=== PATIENT | female | born 1955 | race Caucasian/White ===

== ENCOUNTER → 2024-03-20 11:06 | Outpatient (REF) | payer OTHER, SELFPAY | LOC: WDC 11:06 | PROVIDERS: ATTENDING PHYSICIAN Internal Medicine | DX: Z12.31 Encounter for screening mammogram for malignant neoplasm of breast (principal) | CPT/HCPCS: 77063; 77067 ==

== ENCOUNTER 2024-12-02 14:43 | Inpatient (IN) | payer OTHER, SELFPAY ==
[2024-12-02 09:56] VITALS: BP 152/91
[2024-12-02 10:24] LABS: Hematocrit 43.3 % (37.0-47.0); Hemoglobin 15.0 g/dL (12.0-16.0); Mean Corp Hgb Conc. 34.6 g/dL (33.0-37.0); Mean Corpuscular Volume 89.6 fL (81.0-99.0); Nucleated Red Blood Cells % 0 %; Platelet Count 264 10^3/uL (130-400); Red Cell Dist. Width 12.5 % (11.5-14.5)
[2024-12-02 10:50] LABS: Troponin I < 0.012 ng/ml
[2024-12-02 10:57] LABS: Albumin 4.6 g/dl (3.5-5.0); Alkaline Phosphatase 166 U/L (38-126); Blood Urea Nitrogen 16 mg/dl (7-17); Calcium 10.3 mg/dl (8.4-10.2); Carbon Dioxide 29 mmol/L (22-30); Chloride 103 mmol/L (98-107); Glucose 123 mg/dl (70-99); Potassium 3.8 mmol/L (3.5-5.1); Sodium 138 mmol/L (135-145); Total Protein 7.7 g/dl (6.3-8.2); eGFR > 60.00
[2024-12-02 11:18] LABS: ALT (SGPT) 865 U/L (0-35); AST (SGOT) 1247 U/L (14-36)
[2024-12-02 11:47] LABS: Lipase > 4000 U/L (23-300)
--- NOTE | 2024-12-02 13:22 | ED.GENMED ---
History of Present Illness
General
Chief Complaint: Abdominal Pain
Source: patient
Exam Limitations: none
Time Seen by Provider: 12/02/24 11:38
History of Present Illness
History of Present Illness:
69-year-old female presents complaining of intermittent abdominal pain over the past couple weeks. Today's episode seems more severe. She vomited this morning. No associated fever. She has a history of hypertension. No other complaints at this
time.
Phy Exam
Physical Exam
Physical Exam:
General: Well-appearing but uncomfortable female no acute respiratory distress
HEENT normocephalic atraumatic
Heart: Regular rate and rhythm
Lungs: Clear abdomen is soft tender in the epigastric region and right upper quadrants
Extremities: No cyanosis
Skin no jaundice
Course
Orders/Labs/Results
Orders:
Orders
12/02/24 10:01
ECG [Electrocardiogram (*1)] Urgent
Reason for Study: Abdominal Pain
Other Reason for Exam: Epigastric pain
EKG- Treatment ONCE
12/02/24 10:09
Complete Blood Count/With Diff Urgent
Comprehensive Metabolic Panel Urgent
Lipase Urgent
Troponin I Urgent
12/02/24 11:48
US Abdomen Complete/Upper Urgent
Comment:
Reason For Exam: epigastric pain
Abnormal Lab Results
12/02/24
10:09
WBC 12.1 H 10^3/uL
(4.8-10.8)
MCH 31.1 H pg
(27.0-31.0)
Absolute Neuts (auto) 10.6 H 10^3/uL
(1.4-6.5)
Absolute Lymphs (auto) 0.9 L 10^3/uL
(1.2-3.4)
Neutrophils % 87.1 H %
(42.2-75.2)
Lymphocytes % 7.1 L %
(20.5-51.1)
Glucose 123 H mg/dl
(70-99)
Calcium 10.3 H mg/dl
(8.4-10.2)
Total Bilirubin 3.2 H mg/dl
(0.2-1.3)
AST 1247 H* U/L
(14-36)
ALT 865 H* U/L
(0-35)
Alkaline Phosphatase 166 H U/L
(38-126)
Lipase > 4000 H* U/L
(23-300)
12/02/24 10:09
12/02/24 10:09
Vital Signs
Initial and Last Documented VS:
Initial Vital Signs
Temp Pulse Resp BP Pulse Ox
98.4 F 89 20 152/91 96
12/02/24 09:56 12/02/24 09:56 12/02/24 09:56 12/02/24 09:56 12/02/24 09:56
Last Documented Vital Signs
Temp Pulse Resp BP Pulse Ox
98.4 F 89 20 152/91 96
12/02/24 09:56 12/02/24 09:56 12/02/24 09:56 12/02/24 09:56 12/02/24 09:56
MDM/Problems Addressed
Differential Diagnosis Includes:
Abdominal pain intermittent. Consider biliary colic versus pancreatitis versus constipation
Will check labs and ultrasound of abdomen
*Pulse Oximetry
SaO2: 96
Oxygen Mode of Delivery: Room air
Patient hypoxic: no
*Critical Care Note
Total Time (30-74mins, 75-104mins- exclusive of procedures): Not Applicable
Update Note
Update Note:
Labs demonstrate elevated LFTs and lipase greater than 4000. Ultrasound shows gallstones without cholecystitis. Suspect possible gallstone pancreatitis. Notified hospitalist and GI team will admit to hospital for further workup. Patient
declining any pain medication at this time
ED Attending Note
-
Portions of this chart may have been created with voice recognition software.� Occasional wrong word or��sound alike� substitutions may have occurred due to the inherent limitations of voice recognition software.
Discharge Plan
Departure
Patient Disposition: Admit
Date of Disposition: 12/02/24
Time of Disposition: 13:24
Presentation/result/management discussed w/ accepting MD/DO: Hospitalist
Discharge Problem:
Acute pancreatitis
Prescriptions:
No Action
amlodipine [Norvasc] 2.5 mg Tablet
2.5 mg PO DAILY
Theragen Tablet
1 tab PO DAILY
valsartan-hydrochlorothiazide 320-12.5 mg Tablet
1 tab PO DAILY
cranberry 450 mg Tablet
900 mg PO DAILY
Referrals:
Layne Barrett DO [Family Provider, Family Practice]
Discharge Date and Time
Print Language: [place]
--- NOTE | 2024-12-02 13:38 | HPS.HSE ---
Family Physician
-
Family Physician: Layne Barrett DO
Chief Complaint
-
abdominal pain
History of Present Illness
69-year-old female past medical history of hypertension presenting with epigastric abdominal pain since yesterday night. Patient has had 4 episodes this month of epigastric pain that usually resolves with the next morning. Pain is severe this
time. Pain does not radiate to the back or shoulder. She did have vomiting of bilious material. Was a little bit constipated but denies any diarrhea. No fevers or chills.
No prior history of known gallstones.
She does not drink any alcohol. Denies smoking or drugs.
Medical History
Past Medical History
Past Medical History: Reports Other (hypertension )
Past Surgical History: Reports None
Social History
Tobacco: Non-smoker
Alcohol: None
Drug: None
Family History
Family History: Not pertinent
Allergies / Home Medications
Allergies reflects when Allergies were last updated in [facility].
Home Medications with original date entered in [facility]
Allergy/Medication List:
Allergies
Allergy/AdvReac Type Severity Reaction Status Date / Time
NKA - No Known Allergies Allergy Unknown Uncoded 12/02/24 11:43
Home Medications
amlodipine 2.5 mg tablet (Norvasc) 2.5 mg PO DAILY 12/02/24
cranberry fruit 450 mg tablet (cranberry) 900 mg PO DAILY 12/02/24
therapeutic multivitamin 1 tab PO DAILY 12/02/24
valsartan 320 mg-hydrochlorothiazide 12.5 mg tablet 1 tab PO DAILY 12/02/24
Review of Systems
-
Constitutional: Reports No Symptoms
EENT: Reports No Symptoms
Respiratory: Reports No Symptoms
Cardiac: Reports No Symptoms
Abdomen/GI: Reports See HPI
: Reports No Symptoms
Musculoskeletal: Reports No Symptoms
Skin: Reports No Symptoms
Neurological: Reports No Symptoms
Endocrine: Reports No Symptoms
Hematologic/Lymphatic: Reports No Symptoms
Psych: Reports No Symptoms
Physical Exam
Vital Signs
Vital Signs
Temp Pulse Resp BP Pulse Ox
98.4 F 89 20 152/91 96
12/02/24 09:56 12/02/24 09:56 12/02/24 09:56 12/02/24 09:56 12/02/24 13:24
Physical Exam
General: Well Developed, Well Nourished and No Apparent Distress
HEENT: NormoCephalic, Moist mucous membranes and Atraumatic
Respiratory: Clear
Cardiac: S1/S2 and Regular Rhythm; No Murmur or Rub
GI: Soft, Non Distended, Normal Bowel Sounds and Tender (epigastric tenderness); No Organomegaly
Rectal: Deferred by Provider
Musculoskeletal: No Clubbing, No Cyanosis and No Edema
Skin: No Rash
Neuro: Nonfocal/grossly intact
Laboratory Results
-
12/02/24 10:09
12/02/24 10:09
Laboratory Results
Total Bilirubin 3.2 mg/dl (0.2-1.3) H 12/02/24 10:09
AST 1247 U/L (14-36) H* 12/02/24 10:09
ALT 865 U/L (0-35) H* 12/02/24 10:09
Alkaline Phosphatase 166 U/L (38-126) H 12/02/24 10:09
Troponin I < 0.012 ng/ml 12/02/24 10:09
Lipase > 4000 U/L (23-300) H* 12/02/24 10:09
Data Reviewed
-
Lab Data: Labs Reviewed by me
Old Records: Reviewed
Impression/Plan
-
IMPRESSION:
PLAN:
# Likely acute gallstone pancreatitis
-Leukocytosis
- Abdominal ultrasound shows cholelithiasis, gallbladder contained multiple stones stones, no evidence of cholecystitis, extrahepatic common bile duct 5 mm
- Severe transaminitis with total bilirubin 3.2
- Lipase greater than 4000
- N.p.o.
- IV fluids with LR at 150 cc/h
- Check MRI/MRCP
-Zofran, Toradol, Dilaudid
- GI consulted
- Will need eventual surgical evaluation for cholecystectomy
Essential hypertension
- Continue valsartan/hydrochlorothiazide, amlodipine,
Full code
DVT prophylaxis-heparin
N.p.o.
[2024-12-02] MEDS: NSS 1000 IV (13:40)
[2024-12-02 13:44] VITALS: BMI 31.9
[2024-12-02 14:07] VITALS: BP 163/82
[2024-12-02 15:36] VITALS: BP 188/91; BMI 31.7
--- NOTE | 2024-12-02 16:07 | CON.GI ---
Consultation
-
Date/Time Consultation Requested: 12/02/2024
Date/Time Consultation Performed: 12/02/2024
Requesting Provider: Hospitalist
Performing Provider: Adelso JOHNSON
Reason for Consultation: Pancreatitis
Medical History
Chief Complaint / HPI
Chief Complaint: Abdominal pain
History of Present Illness:
69-year-old female with past medical history of hypertension admitted with abdominal pain/nausea/vomiting since last night. Severe sharp epigastric abdominal pain. No pain radiation associated with bilious vomiting. Patient claims she has been
getting intermittent abdominal pain with nausea 3-4 episodes over the last 1 month. Resolved spontaneously during that time. Denies any alcohol abuse. No prior history of pancreatitis.
Past Medical History
Past Medical History: HTN
Past Surgical History: None
Social History
Tobacco: Non-Smoker
Alcohol: None
Allergies / Home Medications
Allergy/AdvReac Type Severity Reaction Status Date / Time
NKA - No Known Allergies Allergy Unknown Uncoded 12/02/24 11:43
�Medication �Instructions �Recorded
amlodipine 2.5 mg tablet (Norvasc) 2.5 mg PO DAILY 12/02/24
cranberry fruit 450 mg tablet 900 mg PO DAILY 12/02/24
(cranberry)
therapeutic multivitamin 1 tab PO DAILY 12/02/24
valsartan 320 1 tab PO DAILY 12/02/24
mg-hydrochlorothiazide 12.5 mg
tablet
Review of Systems
-
All other systems: A 12 pt ROS was Negative except as stated above in HPI
Vital Signs
Temp Pulse Resp BP Pulse Ox
99.6 F 89 16 188/91 97
12/02/24 15:36 12/02/24 15:36 12/02/24 15:36 12/02/24 15:36 12/02/24 15:36
Physical Exam
Exam
General: Well Developed, Well Nourished and Comfortable
Respiratory: Clear
Cardiac: S1/S2
GI: Soft, Non Tender, Non Distended and Normal Bowel Sounds
Neuro: AO x 3
Results
WBC 12.1 10^3/uL (4.8-10.8) H 12/02/24 10:09
Hgb 15.0 g/dL (12.0-16.0) 12/02/24 10:09
Hct 43.3 % (37.0-47.0) 12/02/24 10:09
MCV 89.6 fL (81.0-99.0) 12/02/24 10:09
Plt Count 264 10^3/uL (130-400) 12/02/24 10:09
Absolute Neuts (auto) 10.6 10^3/uL (1.4-6.5) H 12/02/24 10:09
Sodium 138 mmol/L (135-145) 12/02/24 10:09
Potassium 3.8 mmol/L (3.5-5.1) 12/02/24 10:09
Chloride 103 mmol/L (98-107) 12/02/24 10:09
Carbon Dioxide 29 mmol/L (22-30) 12/02/24 10:09
BUN 16 mg/dl (7-17) 12/02/24 10:09
Creatinine 0.6 mg/dL (0.6-1.0) 12/02/24 10:09
Calcium 10.3 mg/dl (8.4-10.2) H 12/02/24 10:09
Total Bilirubin 3.2 mg/dl (0.2-1.3) H 12/02/24 10:09
AST 1247 U/L (14-36) H* 12/02/24 10:09
ALT 865 U/L (0-35) H* 12/02/24 10:09
Alkaline Phosphatase 166 U/L (38-126) H 12/02/24 10:09
Lipase > 4000 U/L (23-300) H* 12/02/24 10:09
Diagnostic Image Results:
US abd 12/02/2024
IMPRESSION:
Cholelithiasis; gallbladder contains multiple small stones. No secondary findings for acute cholecystitis.
Prior GI Procedures:
EGD: 11/30/2018 Dr. Dena Willams regular. Small hiatal hernia. Chronic gastritis. Normal duodenum
Colonoscopy: 11/2018 Dr. Lopes
Assessment / Plan
-
69-year-old female with past medical history of hypertension admitted with severe epigastric abdominal pain associated with bilious vomiting since last night. Intermittent abdominal pain with nausess 3-4 episodes over the last 1 month. In ED
labs�WBC 12.1. Hb 15/platelets 264
AST 1247/ALT 865/alkaline phosphatase 166/total bilirubin 3.2/lipase over 4000. Ultrasound abdomen showing cholelithiasis. Common bile duct 5 mm
-- Acute pancreatitis-based on symptoms/elevated lipase.Etiology likely gallstone pancreatitis.
-- Elevated liver test
plan
N.p.o.
IV fluid- LR at 150 cc/hr
Pain management as per medical team
Continue to trend LFT
Will check triglyceride
MRI/MRCP to rule out choledocholithiasis. If choledocholithiasis + then will schedule for ERCP
Surgical eval for cholecystectomy
Total Time Spent with Patient (in minutes): 55
-
-
Thank you for consultation and allowing me to participate in the patient's care. Please call the applications sales representative GI physician during the after hours with any questions or concerns.
[2024-12-02] MEDS: LR 1000 IV ×2 (16:50→23:21)
[2024-12-02] MEDS: HEPARIN 5000 UNITS SC (19:39)
[2024-12-02 19:43] VITALS: BP 162/75
[2024-12-02] MEDS: DIOVAN 320 MG PO (19:47)
[2024-12-02] MEDS: NORVASC 2.5 MG PO (19:49)
[2024-12-02] MEDS: ORETIC 12.5 MG PO (19:50)
[2024-12-02 23:30] VITALS: BP 145/84
[2024-12-03] MEDS: LR 1000 IV ×3 (05:26→22:58)
[2024-12-03 06:44] LABS: Hematocrit 41.0 % (37.0-47.0); Hemoglobin 14.0 g/dL (12.0-16.0); Mean Corp Hgb Conc. 34.1 g/dL (33.0-37.0); Mean Corpuscular Volume 89.3 fL (81.0-99.0); Nucleated Red Blood Cells % 0 %; Platelet Count 223 10^3/uL (130-400); Red Cell Dist. Width 12.8 % (11.5-14.5)
[2024-12-03 07:00] VITALS: BP 133/73
[2024-12-03 07:20] LABS: ALT (SGPT) 657 U/L (0-35); AST (SGOT) 555 U/L (14-36); Albumin 3.7 g/dl (3.5-5.0); Alkaline Phosphatase 199 U/L (38-126); Blood Urea Nitrogen 7 mg/dl (7-17); Calcium 9.0 mg/dl (8.4-10.2); Carbon Dioxide 26 mmol/L (22-30); Chloride 107 mmol/L (98-107); Estimated Creatinine Clearance 89 ml/min; Glucose 85 mg/dl (70-99); Potassium 3.4 mmol/L (3.5-5.1); Sodium 138 mmol/L (135-145); Total Protein 6.4 g/dl (6.3-8.2); Triglycerides 71 mg/dl (10-149); eGFR > 60.00
[2024-12-03] MEDS: NORVASC 2.5 MG PO (08:23)
[2024-12-03] MEDS: KCL 20 MEQ PO (08:23)
[2024-12-03] MEDS: DIOVAN 320 MG PO (08:23)
[2024-12-03] MEDS: ORETIC 12.5 MG PO (08:24)
[2024-12-03] MEDS: THERAGRAN 1 TABLET PO (08:24)
[2024-12-03 08:44] LABS: Hepatitis C Antibody Negative (Negative)
--- NOTE | 2024-12-03 09:05 | W.PN.GI.CBS2 ---
Today's Communication / Plan
-
await MRI/MRCP
Assessment / Plan
-
69-year-old female with past medical history of hypertension admitted with severe epigastric abdominal pain associated with bilious vomiting since last night. Intermittent abdominal pain with nausess 3-4 episodes over the last 1 month. In ED
labs�WBC 12.1. Hb 15/platelets 264
AST 1247/ALT 865/alkaline phosphatase 166/total bilirubin 3.2/lipase over 4000. Ultrasound abdomen showing cholelithiasis. Common bile duct 5 mm
-- Acute pancreatitis-based on symptoms/elevated lipase.Etiology likely gallstone pancreatitis.
-- Elevated liver test
plan
await MRI/MRCP if impacted stone will need ERCP
N.p.o.
IV fluid
Continue to trend LFT (bilirubin has gone up)
Surgical eval for cholecystectomy
Subjective
Subjective
Date of Service: December 03, 2024
Pt feels better, no vomiting
Objective
Data Reviewed
Laboratory Data:
Laboratory Results
12/03/24 05:54
12/03/24 05:54
Laboratory Results
Total Bilirubin 7.4 mg/dl (0.2-1.3) H D 12/03/24 05:54
AST 555 U/L (14-36) H* 12/03/24 05:54
ALT 657 U/L (0-35) H* 12/03/24 05:54
Alkaline Phosphatase 199 U/L (38-126) H 12/03/24 05:54
Lipase > 4000 U/L (23-300) H* 12/02/24 10:09
Vital Signs and I&O:
Vital Signs
Temp Pulse Resp BP Pulse Ox
98.2 F 76 14 133/73 94
12/03/24 07:00 12/03/24 07:00 12/03/24 07:00 12/03/24 07:00 12/03/24 07:00
I&O
12/02/24 12/03/24 12/04/24
06:59 06:59 06:59
Intake Total 540 / 540
Balance 540 / 540
Physical Exam
Physical Exam
Cardiology: S1 and S2
GI: Soft and Non Distended
Neuro: Non Focal
[2024-12-03 09:25] LABS: Lipase 2006 U/L (23-300)
--- NOTE | 2024-12-03 11:19 | CM ---
CM reviewed chart, patient seen bedside, initial assessment completed. Patient resides independently in a two level home, bedroom on second floor, 10 steps to enter (5 steps, landing, another 5 steps). Patient denies use of DME, denies VN/SNF hx.
Patient confirms PCP Layne Barrett, pharmacy [facility] on [address], confirms prescription coverage. Patient denies insecurities/needs at home. CM will continue to follow for all discharge planning needs.
Plan; home no needs anticipated
--- NOTE | 2024-12-03 12:19 | W.PN.HOSP.TC ---
Today's Communication/Plan
-
ERCP/EUS today
Eventual cholecystectomy
Add IV AB
Assessment / Plan
Assessment / Plan
69-year-old female with epigastric pain she had 4 episodes this month
Ultrasound of the abdomen-cholelithiasis, gallbladder contains multiple small stones. No findings of acute cholecystitis
EKG-sinus rhythm, incomplete left bundle branch block. No changes since November 2006
MRI/MRCP-biliary stones and sludge. Edema within the gallbladder fossa which can be seen with acute cholecystitis. CBD is not dilated and no evidence of choledocholithiasis. Element of interstitial pancreatitis. Pancreatic duct appears to be
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
Patient states that her pain is much better
Cardiovascular system S1-S2 appreciated
Chest clear to auscultation
Abdomen soft and nontender, bowel sounds present
No pedal edema
# Acute pancreatitis
Likely gallstone pancreatitis
N.p.o. with IV fluids
Continue to trend lipase and LFT-trending down
Triglycerides
MRI/MRCP as above
GI is planning for ERCP/EUS today
Needs eventual cholecystectomy because of symptoms, surgery consulted
# Hypokalemia-replace
# Hypertension-continue valsartan/hydrochlorothiazide and amlodipine
# Obesity per BMI criteria
# DVT prophylaxis-Lovenox
# Full code
Discussed with GI
Part of this note was created using voice recognition system. Occasional wrong word or��sound alike� substitutions may have inadvertently occurred due to the inherent limitations of voice recognition software. If noted kindly bring it to my
attention for correction.
Anticipated Discharge: 24 - 48 hours
Subjective/Interval History
-
Date of Service: December 03, 2024
Objective Data
-
Labs:
Laboratory Results
12/03/24
05:54
WBC 7.7
Hgb 14.0
Hct 41.0
Plt Count 223
Sodium 138
Potassium 3.4 L
Chloride 107
Carbon Dioxide 26
BUN 7
Creatinine 0.5 L
Glucose 85
Calcium 9.0
Total Bilirubin 7.4 H D
AST 555 H*
ALT 657 H*
Alkaline Phosphatase 199 H
Vital Signs:
Vital Signs
Temp Pulse Resp BP Pulse Ox
98.2 F 76 14 133/73 94
12/03/24 07:00 12/03/24 07:00 12/03/24 07:00 12/03/24 07:00 12/03/24 08:35
I&O
12/02/24 12/03/24 12/04/24
06:59 06:59 06:59
Intake Total 540 / 540
Balance 540 / 540
[2024-12-03] MEDS: ZOSYN 50 IV ×2 (13:13→20:18)
[2024-12-03 15:00] VITALS: BP 143/75
[2024-12-03 17:47] VITALS: BP 123/74; BP_SYST 15
[2024-12-03 17:55] VITALS: BP 125/80; BP_SYST 16
--- NOTE | 2024-12-03 18:21 | PTCARENOTE ---
Pt returned from PACU, ambulated to bed. Ordering clear liqs. IVF infusing without difficulty. No requests at this time.
[2024-12-03] MEDS: LOVENOX 40 MG SC (18:23)
--- NOTE | 2024-12-03 18:29 | CON.GS ---
Medical History
-
Chief Complaint: Abdominal pain
History of Present Illness:
Patient is a 69 yo F with a PMH of obesity and HTN who presents with epigastric/lower chest abdominal discomfort. Symptoms began acutely on Monday night. Severe sharp epigastric abdominal pain. Associated nausea and vomiting. States that she has
had intermittent abdominal discomfort with nausea over the past month. Previous symptoms have resolved. No fevers or chills. She reports paler stools and dark urine. No prior knowledge of gallstones or history of pancreatitis. She denies any
alcohol use.
Past Medical History
Past Medical History: HTN
Past Surgical History: None
Social History
Tobacco: Non-Smoker
Alcohol: None
Drug: None
Family History
Family History: Reviewed & Noncontributory
Allergies / Home Medications
Allergy/AdvReac Type Severity Reaction Status Date / Time
NKA - No Known Allergies Allergy Unknown Uncoded 12/02/24 11:43
�Medication �Instructions �Recorded �Confirmed �Type
amlodipine 2.5 mg tablet (Norvasc) 2.5 mg PO DAILY Blood Pressure 12/02/24 12/02/24 History
cranberry fruit 450 mg tablet 900 mg PO DAILY Supplement 12/02/24 12/02/24 History
(cranberry)
therapeutic multivitamin 1 tab PO DAILY Supplement 12/02/24 12/02/24 History
valsartan 320 1 tab PO DAILY Blood Pressure 12/02/24 12/02/24 History
mg-hydrochlorothiazide 12.5 mg
tablet
Review of Systems
-
A 10 point review of systems was completed, and was negative except as per HPI.
Physical Exam
Vital Signs
Temp Pulse Resp BP Pulse Ox
97.7 F 84 16 125/80 97
12/03/24 17:47 12/03/24 17:55 12/03/24 17:55 12/03/24 17:55 12/03/24 17:55
12/02/24 12/03/24 12/04/24
06:59 06:59 06:59
Actual Weight 81.221 kg
Body Mass Index (BMI) 31.7
Lab Results
12/03/24 05:54
12/03/24 05:54
WBC 7.7 10^3/uL (4.8-10.8) 12/03/24 05:54
Hgb 14.0 g/dL (12.0-16.0) 12/03/24 05:54
Hct 41.0 % (37.0-47.0) 12/03/24 05:54
Plt Count 223 10^3/uL (130-400) 12/03/24 05:54
Abs Immat Gran (auto) 0.0 10^3/uL (0-0.05) 12/03/24 05:54
Neutrophils % 72.4 % (42.2-75.2) 12/03/24 05:54
Physical Exam
General: Well Developed, Well Nourished and No Apparent Distress
HEENT: Scleral Icterus
Respiratory: Non Labored Respirations
Cardiac: Regular Rhythm
GI: Soft, Non Tender (Negative Rm's sign), Non Distended, Obese and Other (Non-peritoneal)
Musculoskeletal: No Edema
Skin: Warm, Dry and Jaundice
Neuro: Nonfocal/Grossly Intact
Data Reviewed
-
Ultrasound: Image Personally Visualized and interpreted and Report Reviewed by me
MRI: Report Reviewed by me
Labs: Labs Reviewed by me
Assessment / Plan
-
Patient is a 69 yo F p/w pancreatitis likely of gallstone origin
The natural history and pathophysiology of biliary and stone disease was discussed. Prior workup was reviewed. Role of cholecystectomy in preventing future episodes of cholecystitis, choledocholithiasis, or gallstone pancreatitis was discussed.
GI consult noted. Plan for EUS with possible ERCP today. Timing of cholecystectomy TBD. All questions answered.
-- GI consult noted, plan for EUS today
-- Timing of cholecystectomy TBD, possible tomorrow pending above findings and recovery
-- NPO PM
-- Abx: Zosyn
[2024-12-03 23:14] VITALS: BP 142/86
[2024-12-04] MEDS: ZOSYN 50 IV ×4 (02:58→19:46)
[2024-12-04] MEDS: LR 1000 IV ×3 (05:34→21:08)
[2024-12-04 07:00] VITALS: BP 147/79
--- NOTE | 2024-12-04 07:25 | W.PN.GS2 ---
Addendum entered and electronically signed by Adrian Pennington MD 12/04/24 11:57:
I was physically present and personally performed the carlton portions of the surgical evaluation and/or procedure with the resident. I discussed the findings, reviewed the resident�s note, and confirmed the medical decision-making. I provided direct
supervision as required and agree with the assessment and plan as documented with the following additions/corrections:
No complaints. On exam there is moderate ttp to epigastrium and RUQ with guarding, pt says 'don't do that!'
EUS yesterday without ductal stones, reported 'stones in lower third of main bile duct' is a typographical error, confirmed with GI.
Plan for CCY after pancreatitis resolves, timing TBD. GS will follow. OK foir CLD for now, NPO @ [facility]
Original Note:
Today's Communication / Plan
-
Future laparoscopic cholecystectomy depends on symptoms, Lipase
Assessment / Plan
-
69-year-old female with past h/o HTN admitted with severe epigastric abdominal pain associated with bilious vomiting.
# Abdominal pain, vomiting secondary to Acute Cholecystitis:
Intermittent abdominal pain with nausea 3-4 episodes over the last 1 month.
GIT Abdomen- tender (right upper, epigastric quadrant), non distended.
labs�WBC 12.1--> 6.3
LFT:
AST= 555 (h)-->230 (h)
ALT= 657 (h)--> 414 (h)
Lipase= 2006-->625 (h) comparatively values are reducing from the time of admission.
-Hb 13.3/platelets 264 normal
USG Abdomen:
Cholelithiasis; gallbladder contains multiple small stones. No secondary findings for acute cholecystitis.
MRI Abdomen Impression:
-Biliary stones and sludge. There is edema within the gallbladder fossa which can be seen with acute cholecystitis. The common bile duct is nondilated and there is no evidence of choledocholithiasis.
-There is trace T2 hyperintense signal adjacent to the pancreatic head which may represent an element of interstitial pancreatitis. The pancreatic duct appears within normal limits. There is a 14 x 16 mm T2 hyperintense focus along the pancreatic
uncinate process which appears to extend into the duodenum and may represent a periampullary diverticulum.
ERCP Impression:
-There was no sign of significant pathology in the common bile duct.Multiple stones were visualized endosonographically in the lower third of the main bile duct and in the gallbladder.
-no sign of significant pathology in the pancreatic head, genu of the pancreas and pancreatic body, no sign of significant pathology in the ampulla, no evidence of significant pathology in the left lobe of the liver.
-Planning to postpone the laparoscopic Cholecystectomy surgery due to pancreatitis signs of epigastric pain, elevated lipase level. Will follow up for the improvement of the symptoms.
-Currently pt is on clear fluids.
Subjective Data
-
Date of Service: December 04, 2024
Patient has no concern for nausea, vomiting, abdominal pain, fever, chills, dysuria. She passed flatus today. No bowel movement.
Objective Data
-
Intake and Output
12/03/24 12/04/24 12/05/24
06:59 06:59 06:59
Intake Total 540 / 540 1360 / 1360
Balance 540 / 540 1360 / 1360
Intake:
Oral fluids 240 / 240 60 / 60
IV fluids (Total) 300 / 300 1250 / 1250
IV piggybacks 50 / 50
Other:
Number of approximated MODERATE 3 3
amounts of urine
Vital Signs
Temp Pulse Resp BP Pulse Ox
98.3 F 76 20 142/86 97
12/03/24 23:14 12/03/24 23:14 12/03/24 23:14 12/03/24 23:14 12/03/24 23:14
Calcium 9.0 mg/dl (8.4-10.2) 12/03/24 05:54
Total Bilirubin 7.4 mg/dl (0.2-1.3) H D 12/03/24 05:54
AST 555 U/L (14-36) H* 12/03/24 05:54
ALT 657 U/L (0-35) H* 12/03/24 05:54
Alkaline Phosphatase 199 U/L (38-126) H 12/03/24 05:54
Total Protein 6.4 g/dl (6.3-8.2) 12/03/24 05:54
Albumin 3.7 g/dl (3.5-5.0) 12/03/24 05:54
Physical Exam
-
General: Well Developed, Well Nourished and Comfortable
Respiratory: Clear
Cardiac: S1/S2
GI: Soft, Tender at epigastric, umbilical, Right upper quadrant, Non Distended, no rigid and Normal Bowel Sounds
Neuro: AO x 3
Patient has a iverson catheter: No
Patient has a central line: No
[2024-12-04] MEDS: THERAGRAN 1 TABLET PO (08:07)
[2024-12-04] MEDS: DIOVAN 320 MG PO (08:07)
[2024-12-04] MEDS: ORETIC 12.5 MG PO (08:07)
[2024-12-04] MEDS: NORVASC 2.5 MG PO (08:07)
[2024-12-04 08:16] LABS: Hematocrit 38.3 % (37.0-47.0); Hemoglobin 13.3 g/dL (12.0-16.0); Mean Corp Hgb Conc. 34.7 g/dL (33.0-37.0); Mean Corpuscular Volume 88.2 fL (81.0-99.0); Platelet Count 222 10^3/uL (130-400); Red Cell Dist. Width 12.7 % (11.5-14.5)
--- NOTE | 2024-12-04 08:20 | W.PN.GI.CBS2 ---
Today's Communication / Plan
-
no further GI intervention
surgery f/u
Assessment / Plan
-
69-year-old female with past medical history of hypertension admitted with severe epigastric abdominal pain associated with bilious vomiting since last night. Intermittent abdominal pain with nausess 3-4 episodes over the last 1 month. In ED
labs�WBC 12.1. Hb 15/platelets 264
AST 1247/ALT 865/alkaline phosphatase 166/total bilirubin 3.2/lipase over 4000. Ultrasound abdomen showing cholelithiasis. Common bile duct 5 mm
-- Acute pancreatitis-based on symptoms/elevated lipase.Etiology likely gallstone pancreatitis.
-- Elevated liver test
plan
S/p EUS doing well
Lfts, lipase coming down
Surgical consult done for cholecystectomy
will sign off call with questions
Subjective
Subjective
Date of Service: December 04, 2024
Pt s/p EUS no abdominal pain
Objective
Data Reviewed
Laboratory Data:
Laboratory Results
12/04/24 07:23
Laboratory Results
Total Bilirubin 7.4 mg/dl (0.2-1.3) H D 12/03/24 05:54
AST 555 U/L (14-36) H* 12/03/24 05:54
ALT 657 U/L (0-35) H* 12/03/24 05:54
Alkaline Phosphatase 199 U/L (38-126) H 12/03/24 05:54
Lipase 2006 U/L (23-300) H* 12/03/24 05:54
Vital Signs and I&O:
Vital Signs
Temp Pulse Resp BP Pulse Ox
98.3 F 76 20 142/86 97
12/03/24 23:14 12/03/24 23:14 12/03/24 23:14 12/03/24 23:14 12/03/24 23:14
I&O
12/03/24 12/04/24 12/05/24
06:59 06:59 06:59
Intake Total 540 / 540 1360 / 1360
Balance 540 / 540 1360 / 1360
Physical Exam
Physical Exam
GI: Soft, Non Distended and Non Tender
[2024-12-04 09:30] LABS: ALT (SGPT) 414 U/L (0-35); AST (SGOT) 230 U/L (14-36); Albumin 3.5 g/dl (3.5-5.0); Alkaline Phosphatase 195 U/L (38-126); Blood Urea Nitrogen 8 mg/dl (7-17); Calcium 8.8 mg/dl (8.4-10.2); Carbon Dioxide 24 mmol/L (22-30); Chloride 108 mmol/L (98-107); Estimated Creatinine Clearance 89 ml/min; Glucose 108 mg/dl (70-99); Lipase 625 U/L (23-300); Potassium 3.3 mmol/L (3.5-5.1); Sodium 138 mmol/L (135-145); Total Protein 6.0 g/dl (6.3-8.2); eGFR > 60.00
[2024-12-04] MEDS: KCL 40 MEQ PO (11:46)
[2024-12-04 15:00] VITALS: BP 148/78
--- NOTE | 2024-12-04 15:10 | W.PN.HOSP.TC ---
Today's Communication/Plan
-
clears
Cholecystectomy timing per surgeon
Assessment / Plan
Assessment / Plan
69-year-old female with epigastric pain she had 4 episodes this month
Ultrasound of the abdomen-cholelithiasis, gallbladder contains multiple small stones. No findings of acute cholecystitis
EKG-sinus rhythm, incomplete left bundle branch block. No changes since November 2006
MRI/MRCP-biliary stones and sludge. Edema within the gallbladder fossa which can be seen with acute cholecystitis. CBD is not dilated and no evidence of choledocholithiasis. Element of interstitial pancreatitis. Pancreatic duct appears to be
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
Patient states that her pain is much better
Cardiovascular system S1-S2 appreciated
Chest clear to auscultation
Abdomen soft and nontender, bowel sounds present
No pedal edema
EUS/ERCP-nonbleeding duodenal diverticulum.Multiple stone were visualized in the endoscopically in the lower third of the main bile duct and in the gallbladder. No sign of significant pathology in the pancreatic head, genu of the pancreas and
pancreatic body. No signs of significant pathology in the ampulla. No evidence of pathology in the left lobe of the liver.
# Acute pancreatitis
AB added for acute cholecystitis on CT
Likely gallstone pancreatitis
Clears started today
MRI/MRCP as above
EUS ERCP without any obstruction
Continue to trend lipase and LFT-trending down
Needs eventual cholecystectomy because of symptoms, surgery consulted
# Hypokalemia-replace
# Hypertension-continue valsartan/hydrochlorothiazide and amlodipine
# Obesity per BMI criteria
# DVT prophylaxis-Lovenox
# Full code
Discussed with surgeon
Part of this note was created using voice recognition system. Occasional wrong word or��sound alike� substitutions may have inadvertently occurred due to the inherent limitations of voice recognition software. If noted kindly bring it to my
attention for correction.
Anticipated Discharge: 24 - 48 hours
Subjective/Interval History
-
Date of Service: December 04, 2024
Objective Data
-
Labs:
Laboratory Results
12/04/24
07:23
WBC 6.3
Hgb 13.3
Hct 38.3
Plt Count 222
Sodium 138
Potassium 3.3 L
Chloride 108 H
Carbon Dioxide 24
BUN 8
Creatinine 0.6
Glucose 108 H
Calcium 8.8
Total Bilirubin 5.0 H
AST 230 H
ALT 414 H
Alkaline Phosphatase 195 H
Vital Signs:
Vital Signs
Temp Pulse Resp BP Pulse Ox
98.8 F 69 18 147/79 95
12/04/24 07:00 12/04/24 07:00 12/04/24 07:00 12/04/24 07:00 12/04/24 07:00
I&O
12/03/24 12/04/24 12/05/24
06:59 06:59 06:59
Intake Total 540 / 540 1360 / 1360
Balance 540 / 540 1360 / 1360
[2024-12-04] MEDS: LOVENOX SC (18:07)
[2024-12-04 23:22] VITALS: BP 164/90
[2024-12-05] VITALS (13 sets, daily range): BP systolic 122–164; BP diastolic 58–91; BMI 31.7
[2024-12-05] MEDS: ZOSYN 50 IV ×2 (02:53→08:00)
[2024-12-05] MEDS: LR 1000 IV (03:28)
[2024-12-05 06:52] LABS: ALT (SGPT) 302 U/L (0-35); AST (SGOT) 118 U/L (14-36); Albumin 3.3 g/dl (3.5-5.0); Alkaline Phosphatase 174 U/L (38-126); Blood Urea Nitrogen 6 mg/dl (7-17); Calcium 8.9 mg/dl (8.4-10.2); Carbon Dioxide 26 mmol/L (22-30); Chloride 108 mmol/L (98-107); Estimated Creatinine Clearance 77 ml/min; Glucose 100 mg/dl (70-99); Lipase 252 U/L (23-300); Magnesium 1.8 mg/dl (1.6-2.3); Potassium 3.9 mmol/L (3.5-5.1); Sodium 138 mmol/L (135-145); Total Protein 5.8 g/dl (6.3-8.2); eGFR > 60.00
[2024-12-05 07:42] LABS: Hematocrit 38.3 % (37.0-47.0); Hemoglobin 13.4 g/dL (12.0-16.0); Mean Corp Hgb Conc. 35.0 g/dL (33.0-37.0); Mean Corpuscular Volume 88.2 fL (81.0-99.0); Platelet Count 225 10^3/uL (130-400); Red Cell Dist. Width 12.8 % (11.5-14.5)
[2024-12-05] MEDS: NORVASC 2.5 MG PO (07:55)
[2024-12-05] MEDS: DIOVAN 320 MG PO (07:55)
[2024-12-05] MEDS: THERAGRAN 1 TABLET PO (07:55)
[2024-12-05] MEDS: ORETIC 12.5 MG PO (07:59)
--- NOTE | 2024-12-05 10:24 | W.PN.GS2 ---
Addendum entered and electronically signed by Umesh Barkley MD 12/05/24 11:03:
I was physically present and personally performed the carlton portions of the surgical evaluation and/or procedure with the resident. I discussed the findings, reviewed the resident�s note, and confirmed the medical decision-making. I provided direct
supervision as required and agree with the assessment and plan as documented with the following additions/corrections:
Patient reports resolution of presenting abdominal pain. No nausea. Appetite returning.
AFVSS
NAD AAO x 3
ABD: Soft, nondistended, nontender on palpation.
Assessment/plan: 69-year-old female initially admitted with acute biliary pancreatitis, MRCP negative for choledocholithiasis but confirms gallstones as well as ultrasound confirming gallstones.
Discussed with patient indications for cholecystectomy which she is in agreement and prefers to proceed with that this index hospitalization.
Laparoscopic cholecystectomy with cholangiogram was reviewed in detail including operative technique utilizing diagrams and alternative management options. The potential benefits and risks of the procedure were reviewed in detail, including but not
limited to infectious or wound healing complications, bleeding, bile leak, injury to biliary tree, iatrogenic injury to surrounding viscera and post cholecystectomy syndrome. Reviewed the typical postoperative recovery.
Any of the patient's concerns or questions were fully addressed and informed consent was obtained.
Original Note:
Today's Communication / Plan
-
laparoscopic cholecystectomy followed by cholangiogram.
Assessment / Plan
-
69-year-old female with past h/o HTN admitted with severe epigastric abdominal pain associated with bilious vomiting.
# Abdominal pain, vomiting secondary to Acute Cholecystitis:
Intermittent abdominal pain with nausea 3-4 episodes over the last 1 month.
GIT Abdomen- tender (right upper, epigastric quadrant), non distended.
labs�WBC 12.1--> 6.3-->6.4
BP- 164/91 (currently
LFT:
AST= 555 (h)-->230 (h)--> 118 (h)
ALT= 657 (h)--> 414 (h)-->302 (h)
Lipase= 2006-->625 (h)--> 252 (n) comparatively values are reducing from the time of admission.
-Hb 13.3/platelets 264 normal
USG Abdomen:
Cholelithiasis; gallbladder contains multiple small stones. No secondary findings for acute cholecystitis.
MRI Abdomen Impression:
-Biliary stones and sludge. There is edema within the gallbladder fossa which can be seen with acute cholecystitis. The common bile duct is nondilated and there is no evidence of choledocholithiasis.
-There is trace T2 hyperintense signal adjacent to the pancreatic head which may represent an element of interstitial pancreatitis. The pancreatic duct appears within normal limits. There is a 14 x 16 mm T2 hyperintense focus along the pancreatic
uncinate process which appears to extend into the duodenum and may represent a periampullary diverticulum.
ERCP Impression:
-There was no sign of significant pathology in the common bile duct.Multiple stones were visualized endosonographically in the gallbladder.
-no sign of significant pathology in the pancreatic head, genu of the pancreas and pancreatic body, no sign of significant pathology in the ampulla, no evidence of significant pathology in the left lobe of the liver.
- Zosyn DAY 4
- planning for laparoscopic Cholecystectomy surgery followed by Cholangiogram ( pt lipase normal level.)
-Currently pt is on NPO.
Subjective Data
-
Date of Service: December 05, 2024
patient abdominal pain improved, no concern for nausea, vomiting, diarrhea, fever, chills.
Objective Data
-
Intake and Output
12/04/24 12/05/24 12/06/24
06:59 06:59 06:59
Intake Total 1360 / 1360 3190 / 3190
Balance 1360 / 1360 3190 / 3190
Intake:
Oral fluids 60 / 60 1440 / 1440
IV fluids (Total) 1250 / 1250 1650 / 1650
IV piggybacks 50 / 50 100 / 100
Other:
Number of approximated MODERATE 3 5
amounts of urine
Vital Signs
Temp Pulse Resp BP Pulse Ox
98.3 F 69 18 164/91 96
12/05/24 07:15 12/05/24 07:15 12/05/24 07:15 12/05/24 07:15 12/05/24 07:15
Lab Results
12/05/24 06:11
12/05/24 06:11
Calcium 8.9 mg/dl (8.4-10.2) 12/05/24 06:11
Magnesium 1.8 mg/dl (1.6-2.3) 12/05/24 06:11
Total Bilirubin 2.7 mg/dl (0.2-1.3) H 12/05/24 06:11
Direct Bilirubin 3.9 mg/dl (0.0-0.4) H 12/04/24 07:23
AST 118 U/L (14-36) H 12/05/24 06:11
ALT 302 U/L (0-35) H 12/05/24 06:11
Alkaline Phosphatase 174 U/L (38-126) H 12/05/24 06:11
Total Protein 5.8 g/dl (6.3-8.2) L 12/05/24 06:11
Albumin 3.3 g/dl (3.5-5.0) L 12/05/24 06:11
Physical Exam
-
General: Well Developed, Well Nourished and Comfortable
Respiratory: Clear
Cardiac: S1/S2
GI: Soft, Tender at epigastric, umbilical, Right upper quadrant, Non Distended, no rigid and Normal Bowel Sounds
Neuro: AO x 3
Patient has a iverson catheter: No
Patient has a central line: No
--- NOTE | 2024-12-05 10:41 | CM ---
CM reviewed chart, discussed with nurse, patient for OR today. CM will continue to follow for all discharge planning needs.
Plan; OR today, likely home no needs
--- NOTE | 2024-12-05 11:03 | W.SUR.PREOP ---
Pre-Operative Surgical Note
-
I have examined this patient prior to the performance of the scheduled procedure.
The patient's condition is unchanged from the time of the current History and
Physical and the patient is able to undergo the scheduled procedure.
--- NOTE | 2024-12-05 13:01 | W.IMMPOSTOP ---
Addendum entered and electronically signed by Umesh Barkley MD 12/05/24 13:13:
#[id number]
Original Note:
Surgical Immed Post Op Note
-
Primary Surgeon: Umesh Barkley MD
Assisting Surgeon: Kathryn Avitia PA-C
Pre-op Diagnosis: Gallstone mediated pancreatitis
Post-op Diagnosis: Gallstone mediated pancreatitis
Procedure Performed: Laparoscopic cholecystectomy with cholangiogram
Anesthesia Type: GETA +0.25% Marcaine with epi
Specimen / Cultures: Gallbladder
Estimated Blood Loss: 6 mL
Complications: None immediate
Operative Findings: Physiologically distended gallbladder with stones. No acute or chronic inflammatory changes. Numerous sludge like stones within the cystic duct which were extracted. Intraoperative cholangiogram normal. Gallbladder removed
intact.
Plan: Routine postoperative care, advance to low-fat diet as tolerated.
Updated patient's friend Bernie via phone call postoperatively
--- NOTE | 2024-12-05 14:58 | W.PN.HOSP.TC ---
Today's Communication/Plan
-
CW abx for today and dc in am if stable
DC planning
Diet per surgery
Assessment / Plan
Assessment / Plan
69-year-old female with epigastric pain she had 4 episodes this month
Ultrasound of the abdomen-cholelithiasis, gallbladder contains multiple small stones. No findings of acute cholecystitis
EKG-sinus rhythm, incomplete left bundle branch block. No changes since November 2006
MRI/MRCP-biliary stones and sludge. Edema within the gallbladder fossa which can be seen with acute cholecystitis. CBD is not dilated and no evidence of choledocholithiasis. Element of interstitial pancreatitis. Pancreatic duct appears to be
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
EUS/ERCP-nonbleeding duodenal diverticulum.Multiple stone were visualized in the endoscopically in the lower third of the main bile duct and in the gallbladder. No sign of significant pathology in the pancreatic head, genu of the pancreas and
pancreatic body. No signs of significant pathology in the ampulla. No evidence of pathology in the left lobe of the liver.
# Acute gallstone pancreatitis
MRI/MRCP as above
EUS ERCP without any obstruction
Continue to trend lipase and LFT-trending down
s/p lapl cholecystectomy 12/05
# Hypertension-continue valsartan/hydrochlorothiazide and amlodipine
# Obesity per BMI criteria
# DVT prophylaxis-Lovenox
# Full code
DC in am if stable
Part of this note was created using voice recognition system. Occasional wrong word or��sound alike� substitutions may have inadvertently occurred due to the inherent limitations of voice recognition software. If noted kindly bring it to my
attention for correction.
Anticipated Discharge: Within 24 hours
Subjective/Interval History
-
Date of Service: December 05, 2024
Seen in PACU post lap olamide
She is alert and oriented. Denies much of pain from trocar site.
Denies shortness of breath or chest pain. No nausea vomiting.
Objective Data
-
Labs:
Laboratory Results
12/05/24
06:11
WBC 6.4
Hgb 13.4
Hct 38.3
Plt Count 225
Sodium 138
Potassium 3.9
Chloride 108 H
Carbon Dioxide 26
BUN 6 L
Creatinine 0.7
Glucose 100 H
Calcium 8.9
Total Bilirubin 2.7 H
AST 118 H
ALT 302 H
Alkaline Phosphatase 174 H
Vital Signs:
Vital Signs
Temp Pulse Resp BP Pulse Ox
97.3 F 62 14 128/69 95
12/05/24 13:10 12/05/24 14:15 12/05/24 14:15 12/05/24 14:30 12/05/24 14:30
I&O
12/04/24 12/05/24 12/06/24
06:59 06:59 06:59
Intake Total 1360 / 1360 3190 / 3190
Balance 1360 / 1360 3190 / 3190
Physical Exam
-
General: Comfortable
Respiratory: Clear to Auscultation (anteriorly) and Non Labored Respirations; Negative Accessory Resp Muscle Use
Cardiac: Regular Rhythm and S1/S2
GI: Soft, Nondistended, Normal Bowel Sounds and Other (no bleeding from trocar sites)
Neuro: AO x 3
Psych: Calm
Data Reviewed
-
Labs: Labs Reviewed by me
[2024-12-05] MEDS: LOVENOX 40 MG SC (17:13)
[2024-12-05] MEDS: LR IV (17:28)
[2024-12-06 03:30] VITALS: BP 151/88
[2024-12-06] MEDS: TYLENOL 1000 MG PO (05:33)
[2024-12-06 06:25] LABS: ALT (SGPT) 288 U/L (0-35); AST (SGOT) 119 U/L (14-36); Albumin 3.5 g/dl (3.5-5.0); Alkaline Phosphatase 161 U/L (38-126); Blood Urea Nitrogen 10 mg/dl (7-17); Calcium 9.3 mg/dl (8.4-10.2); Carbon Dioxide 28 mmol/L (22-30); Chloride 105 mmol/L (98-107); Estimated Creatinine Clearance 89 ml/min; Glucose 96 mg/dl (70-99); Potassium 3.9 mmol/L (3.5-5.1); Sodium 137 mmol/L (135-145); Total Protein 6.2 g/dl (6.3-8.2); eGFR > 60.00
--- NOTE | 2024-12-06 06:55 | W.PN.GS2 ---
Addendum entered and electronically signed by Adrian Pennington MD 12/06/24 14:42:
I was physically present and personally performed the carlton portions of the surgical evaluation and/or procedure with the resident. I discussed the findings, reviewed the resident�s note, and confirmed the medical decision-making. I provided direct
supervision as required and agree with the assessment and plan as documented with the following additions/corrections:
Doig well post-op. Ambulating, voiding, renuka PO, pain controlled. Ab exam approp ttp incisions cdi. OK for DC home.
Original Note:
Today's Communication / Plan
-
Discharge for today
Assessment / Plan
-
69-year-old female with past h/o HTN admitted with severe epigastric abdominal pain associated with bilious vomiting.
#Acute cholecystitis s/p laparoscopic cholecystectomy DAY 1:
labs�WBC 12.1--> 6.3-->6.4
Afebrile, BP- 143/73
LFT:
AST= 555 (h)-->230 (h)--> 118 (h)--> 119 (h)
ALT= 657 (h)--> 414 (h)-->302 (h)-->288 (h)
Lipase= 2006-->625 (h)--> 252 (n) comparatively values are reducing from the time of admission.
-Hb 13.3/platelets 264 normal
USG Abdomen:
Cholelithiasis; gallbladder contains multiple small stones. No secondary findings for acute cholecystitis.
ERCP Impression:
-There was no sign of significant pathology in the common bile duct.Multiple stones were visualized endosonographically in the gallbladder.
-no sign of significant pathology in the pancreatic head, genu of the pancreas and pancreatic body, no sign of significant pathology in the ampulla, no evidence of significant pathology in the left lobe of the liver.
Intraoperative findings:
Physiologically distended gallbladder with stones. No acute or chronic inflammatory changes. Numerous sludge like stones within the cystic duct which were extracted. Intraoperative cholangiogram normal. Gallbladder removed intact.
- currently pt is on low fat diet.
- planning for the discharge today with post op instructions includes not lifting heavy weight for more than 20 pounds for few weeks.
- adviced for low fat diet.
Subjective Data
-
Date of Service: December 06, 2024
Overnight pt is feeling better. she passed flatus. no concerns for abdominal pain, nausea, vomiting, diarrhea, fever, chills. Pt is walking around the room.
Objective Data
-
Intake and Output
12/04/24 12/05/24 12/06/24
06:59 06:59 06:59
Intake Total 1360 / 1360 3190 / 3190
Balance 1360 / 1360 3190 / 3190
Intake:
Oral fluids 60 / 60 1440 / 1440
IV fluids (Total) 1250 / 1250 1650 / 1650
IV piggybacks 50 / 50 100 / 100
Other:
Number of approximated MODERATE 3 5
amounts of urine
Vital Signs
Temp Pulse Resp BP Pulse Ox
97.8 F 72 18 151/88 97
12/06/24 03:30 12/06/24 03:30 12/06/24 03:30 12/06/24 03:30 12/06/24 03:30
Lab Results
12/05/24 06:11
12/06/24 05:32
Calcium 9.3 mg/dl (8.4-10.2) 12/06/24 05:32
Magnesium 1.8 mg/dl (1.6-2.3) 12/05/24 06:11
Total Bilirubin 1.6 mg/dl (0.2-1.3) H D 12/06/24 05:32
Direct Bilirubin 3.9 mg/dl (0.0-0.4) H 12/04/24 07:23
AST 119 U/L (14-36) H 12/06/24 05:32
ALT 288 U/L (0-35) H 12/06/24 05:32
Alkaline Phosphatase 161 U/L (38-126) H 12/06/24 05:32
Total Protein 6.2 g/dl (6.3-8.2) L 12/06/24 05:32
Albumin 3.5 g/dl (3.5-5.0) 12/06/24 05:32
Physical Exam
-
General: Well Developed, Well Nourished and Comfortable
Respiratory: Clear
Cardiac: S1/S2
GI: Soft, non tender, Non Distended, no rigid and Normal Bowel Sounds
Neuro: AO x 3
Patient has a iverson catheter: No
Patient has a central line: No
[2024-12-06 07:20] VITALS: BP 143/73
[2024-12-06] MEDS: ORETIC 12.5 MG PO (08:41)
[2024-12-06] MEDS: NORVASC 2.5 MG PO (08:42)
[2024-12-06] MEDS: THERAGRAN 1 TABLET PO (08:42)
[2024-12-06] MEDS: DIOVAN 320 MG PO (08:42)
--- NOTE | 2024-12-06 11:18 | W.DCSUMMARY ---
Discharge Summary
Discharge Data
Date of Admission: 12/02/24
Date of Discharge: 12/06/24
-
Pending Results: Yes (Gallbladder pathology pending)
Hospital Course
Primary diagnosis:
Acute gallstone pancreatitis s/p cholecystectomy
Secondary diagnosis:
Essential hypertension
Hospital course:
69-year-old lady presented with epigastric pain and she had 4 episodes this month. Ultrasound showed cholelithiasis but no acute cholecystitis
MRI/MRCP showed biliary stones and sludge. Edema within the gallbladder. Which could be seen with acute cholecystitis noted. CBD is nondilated and there is no evidence of choledocholithiasis. There is element of interstitial pancreatitis.. She
went on to have endoscopic ultrasound/ERCP which showed nonbleeding duodenal diverticulum.Multiple stone were visualized in the endoscopically in the lower third of the main bile duct and in the gallbladder. No sign of significant pathology in the
pancreatic head, genu of the pancreas and pancreatic body. No signs of significant pathology in the ampulla. No evidence of pathology in the left lobe of the liver.
Seen by general surgery and recommendation was for cholecystectomy and had uneventful lap cholecystectomy 12/05.
Today patient's postop pain was well-controlled with Tylenol alone.
Denies nausea vomiting. Tolerating diet. Afebrile. Hemodynamically stable with blood pressure 150/73.
Abdomen soft. No bleeding from trocar sites.
Medically stable for discharge home today.
Consultants on board:
General Surgery-Umesh Frias
GI - Sushma Higginbotham
Discharge Plan
-
Patient Disposition: Home (Routine Discharge)
Discharge Diagnosis/Procedures: Gallstone pancreatitis. Laparoscopic cholecystectomy with cholangiogram
Condition: Good
Diet: As tolerated and Low Fat
Additional Diets: Low-fat diet for a week and resume regular diet
Activity: No strenuous activity
Additional Activity: Did not left more than 20 pounds weight next 2 weeks
Driving Restrictions: No driving for 24 hours
Bathing Restrictions: OK to Shower
Wound Care: Glue at surgical sites typically peels off in 2 to 3 weeks
Activity Restrictions/Additional Instructions:
[facility] General Surgery
Umesh Barkley MD FACS
[facility]
[address], [address]
[place] [address]
[phone]
Post-Operative Instructions for Gallbladder Surgery
The incision sites are sealed with a surgical glue dressing.� It is safe to shower at any time after surgery when the glue is dry.� Let shower water run over the incisions and then pat dry.
Glue dressing typically peels off in 2-3 weeks.
Abdominal/incisional pain and discomfort, shoulder/scapular pain, bloating, and mild nausea, as well as bruising/stiffness and swelling at the incision sites are common after surgery.� If felt to be excessive, notify us.
Please start postoperative pain management using over the counter medications such as Tylenol and Ibuprofen, per instructions on the bottle, as long as there are no medical reasons why you cannot take these medications.
Ice the incisions sites for 20 minutes every hour or so to help with postoperative incisional pain and reduce postoperative surgical site swelling.� Take care NOT to get an ice burn on the skin surface.
A warm heating pad is often helpful to alleviate shoulder/scapular back pains after laparoscopic procedures.� This pain typically dissipates 24-72hrs post op.
Transition to a low fat diet as tolerated after surgery if not experiencing postoperative nausea or significant bloating/distention.� Some fatty food intolerance may occur shortly after surgery (cramps,bloating, nausea,diarrhea with fat intake).
Constipation is common following surgery and postoperative narcotic use.� May use a stool softener such as Colace (100 mg 2x day) to prevent constipation
If no BM 24hrs after surgery, recommend starting daily Miralax
If no BM in 24-48hrs after starting Miralax --> recommend then using a dose of magnesium citrate or milk of magnesia with a Senokot tablet to help alleviate post operative constipation as long as there is no nausea/vomiting and passing gas.
Resume all preoperative medications as directed on the discharge medication reconciliation paper.
Do not drive or drink alcohol for 24 hrs after having anesthesia -OR- while taking narcotic pain medications.
Resume regular daily light activities, such as walking, standing and going up/down stairs as tolerated within 24hrs of surgery.� Please refrain from lifting over 15-20 lbs or strenuous exercise until postoperative follow up visit &/or approximately
3-4 weeks.�
Call the office with a fever above 101� F, nausea with vomiting, severe abdominal pain, yellowing of skin or eyes, spreading redness and drainage from incision sites or with any concerns/questions.
Please call the office to schedule or confirm your postoperative surgical follow-up office visit with Dr. Barkley.
Referrals:
Umesh Barkley MD [Active, Surgical] - in two to three weeks
Layne Barrett DO [Family Provider, Family Practice] - in less than 1 week
Prescriptions:
New
acetaminophen [Tylenol Extra Strength] 500 mg Tablet
1,000 mg PO Q6HPRN PRN (Reason: mild pain) Qty: 1 0RF
Continued
amlodipine [Norvasc] 2.5 mg Tablet
2.5 mg PO DAILY
therapeutic multivitamin Tablet
1 tab PO DAILY
valsartan-hydrochlorothiazide 320-12.5 mg Tablet
1 tab PO DAILY
cranberry 450 mg Tablet
900 mg PO DAILY
Discharge Orders:
Discharge Patient (As Directed); Ordered 12/06/24
Ordered By: Oliver Rowland
Discharge Date and Time
Print Language: VIETNAMESE
[2024-12-06 11:30] VITALS: BP 126/73
--- NOTE | 2024-12-06 13:08 | CM ---
CM reviewed chart, patient for discharge today. IMM verbally reviewed, provided with copy, placed in chart. Patient confirms transportation home via cousin. CM will continue to follow for all discharge planning needs.
Plan; home no needs
== END 2024-12-06 12:53 | disposition home or self-care (01) | DRG 419 ==
LOC: 4 WEST ACU 14:43
PROVIDERS: Hospitalist; Internal Medicine Gastroenterology; Nurse Practitioner; Radiology Diagnostic Radiology; Student in an Organized Health Care Education/Training Program; Surgery; ADMITTING PHYSICIAN Hospitalist; ATTENDING PHYSICIAN Internal Medicine; CONSULT PHYSICIAN Internal Medicine Gastroenterology; CONSULT PHYSICIAN Surgery; EMERGENCY PHYSICIAN Student in an Organized Health Care Education/Training Program; FAMILY PHYSICIAN Internal Medicine
PROC: BF4CZZZ Ultrasonography of Hepatobiliary System, All (ICD-10-PCS; 2024-12-03)
PROC: 0DJ08ZZ Inspection of Upper Intestinal Tract, Via Natural or Artificial Opening Endoscopic (ICD-10-PCS; 2024-12-03)
PROC: BF101ZZ Fluoroscopy of Bile Ducts using Low Osmolar Contrast (ICD-10-PCS; 2024-12-05)
PROC: 0FT44ZZ Resection of Gallbladder, Percutaneous Endoscopic Approach (ICD-10-PCS; 2024-12-05)
DX: K85.10 Biliary acute pancreatitis without necrosis or infection (principal); K80.70 Calculus of gallbladder and bile duct without cholecystitis without obstruction; D72.829 Elevated white blood cell count, unspecified; I10 Essential (primary) hypertension; E66.9 Obesity, unspecified; K57.10 Diverticulosis of small intestine without perforation or abscess without bleeding; E87.6 Hypokalemia; R74.8 Abnormal levels of other serum enzymes; K29.50 Unspecified chronic gastritis without bleeding; K44.9 Diaphragmatic hernia without obstruction or gangrene; Z68.31 Body mass index [BMI] 31.0-31.9, adult; Z79.899 Other long term (current) drug therapy
CPT/HCPCS: 74183; 74300; 76000; 76700; 80053; 82248; 83690; 83735; 84478; 84484; 85025; 85027; 86803; 88304; 93005; 99285; A4300; A9575

== ENCOUNTER → 2025-03-21 14:41 | Outpatient (REF) | payer OTHER, SELFPAY | LOC: WDC 14:41 | PROVIDERS: ATTENDING PHYSICIAN Obstetrics & Gynecology Gynecology; FAMILY PHYSICIAN Internal Medicine | DX: Z12.31 Encounter for screening mammogram for malignant neoplasm of breast (principal) | CPT/HCPCS: 77063; 77067 ==

== ENCOUNTER → 2025-04-16 09:51 | Outpatient (REF) | payer OTHER, SELFPAY | LOC: HWRAD 09:51 | PROVIDERS: ATTENDING PHYSICIAN Internal Medicine | DX: M85.89 Other specified disorders of bone density and structure, multiple sites (principal) | CPT/HCPCS: 77080 ==